=== PATIENT | female | born 1985 | race African-American/Black ===

== ENCOUNTER 2018-01-17 22:18 | Emergency (ER) | payer OTHER ==
[~2018-01-17] VITALS: Ht 160 cm; Wt 83.7 kg
[2018-01-17] MEDS ORDERED: AMOXICILLIN500 MG PO (23:00)
[2018-01-17] MEDS ORDERED: NORCO 5/3251 TABLET PO (23:00)
[2018-01-17] MEDS ORDERED: CLEOCIN300 MG PO (23:14)
[2018-01-17 23:21] VITALS: BP 121/80
== END 2018-01-17 23:22 | disposition home or self-care (01) ==
LOC: EME 22:18
DX: K08.9 Disorder of teeth and supporting structures, unspecified (principal)
CPT/HCPCS: 99281; 99283